=== PATIENT | female | born 1995 | race Caucasian/White ===

== ENCOUNTER 2017-05-31 15:14 | Emergency (ER) | payer OTHER | END 2017-05-31 16:58 | disposition home or self-care (01) | LOC: M ED 15:14 | DX: Z04.1 Encounter for examination and observation following transport accident (principal); S20.20XA Contusion of thorax, unspecified, initial encounter; V48.5XXA Car driver injured in noncollision transport accident in traffic accident, initial encounter; Y92.411 Interstate highway as the place of occurrence of the external cause; Y93.89 Activity, other specified; Y99.8 Other external cause status; M54.5 Low back pain; Z79.899 Other long term (current) drug therapy | CPT/HCPCS: 71111 ==

== ENCOUNTER 2017-10-02 11:05 | Emergency (ER) | payer OTHER ==
[2017-10-02] MEDS: NS 1,000 ML IV (12:00)
[2017-10-02] MEDS: ACETAMINOPHEN TAB 650MG DOSE (2X325MG) PO (12:00)
[2017-10-02 12:08] LABS: BASO # 0.1 10^3/uL (0.0-0.2); BASO % 0.7 % (0.0-1.0); EOS # 0.1 10^3/uL (0.0-0.50); EOS % 1.2 % (0.0-3.0); HEMATOCRIT 38.6 % (36.0-47.0); HEMOGLOBIN 13.2 g/dl (12.0-15.5); IMMATURE GRANULOCYTE % 0.1 % (0-3.0); LYMPH % 27.1 % (24.0-44.0); MEAN CORPUSCULAR HEMOGLOBIN 29.1 pg (27.0-33.0); MEAN CORPUSCULAR HGB CONC 34.2 g/dl (32.0-36.5); MONO # 0.7 10^3/uL (0.0-0.8); MONO % 9.3 % (0.0-5.0); NEUTROPHILS # 4.5 10^3/uL (1.8-7.7); NEUTROPHILS % 61.6 % (36.0-66.0); PLATELET COUNT, AUTOMATED 261 10^3/uL (150-450); RED BLOOD COUNT 4.54 10^6/uL (4.00-5.40); RED CELL DISTRIBUTION WIDTH 11.9 % (11.5-14.5); WHITE BLOOD COUNT 7.3 10^3/uL (4.0-10.0)
[2017-10-02 12:15] LABS: AMORPHOUS SEDIMENT RFX MODERATE (NEGATIVE); KETONE, URINE AUTO RFX NEGATIVE (NEGATIVE); LEUKOCYTE ESTERASE UR AUTO RFX NEGATIVE (NEGATIVE); MUCUS, URINE RFX SMALL (NEGATIVE); NITRITE, URINE AUTO RFX NEGATIVE (NEGATIVE); RBC, URINE AUTO RFX 0 /HPF (0-3); SPECIFIC GRAVITY UR AUTO RFX 1.015 (1.002-1.035); SQUAM EPITHELIAL CELL UR AURFX 0 /HPF (0-6); WBC, URINE AUTO RFX 0 /HPF (0-3)
[2017-10-02 12:45] LABS: HCG, SERUM QUANTITATIVE 18620 MIU/ML
== END 2017-10-02 13:38 | disposition home or self-care (01) ==
LOC: M ED 11:05
DX: O99.89 Other specified diseases and conditions complicating pregnancy, childbirth and the puerperium (principal); R10.9 Unspecified abdominal pain; O36.8390 Maternal care for abnormalities of the fetal heart rate or rhythm, unspecified trimester, not applicable or unspecified; Z3A.01 Less than 8 weeks gestation of pregnancy; Z79.899 Other long term (current) drug therapy
CPT/HCPCS: 76801

== ENCOUNTER 2018-03-15 12:08 | Emergency (ER) | payer OTHER | END 2018-03-15 12:55 | disposition home or self-care (01) | LOC: M ED 12:08 | DX: O99.89 Other specified diseases and conditions complicating pregnancy, childbirth and the puerperium (principal); L03.116 Cellulitis of left lower limb; Z3A.29 29 weeks gestation of pregnancy | CPT/HCPCS: 99282 ==

== ENCOUNTER 2018-05-31 04:53 | Inpatient (IN) | payer OTHER, SELFPAY ==
[2018-05-31] VITALS (36 sets, daily range): BP systolic 99–166; BP diastolic 53–91
[~2018-05-31] VITALS: Ht 180.3 cm; Wt 96.0 kg
[~2018-05-31 04:53] MED LIST: BENA25CA4 PO; CYCL5TAB PO; KEFL500C17 PO; NAPR250T4 PO; NORCOTAB PO; PRENTAB77 PO
[2018-05-31] MEDS ORDERED: LR 1,000 ML IV SCH (07:20)
[2018-05-31] MEDS ORDERED: LACTATED RINGER'S 1000 ML IV ONE (07:30)
[2018-05-31 07:50] LABS: HEMATOCRIT 34.3 % (36.0-47.0); HEMOGLOBIN 11.2 g/dl (12.0-15.5); MEAN CORPUSCULAR HEMOGLOBIN 27.3 pg (27.0-33.0); MEAN CORPUSCULAR HGB CONC 32.7 g/dl (32.0-36.5); MEAN CORPUSCULAR VOLUME 83.7 fl (80.0-96.0); PLATELET COUNT, AUTOMATED 226 10^3/uL (150-450)
[2018-05-31] MEDS ORDERED: FENTANYL 2MCG/ML ROPIVACAINE 0.2% IN 0.9% NACL 100ML IVBAG As Ordered ONE (08:10)
[2018-05-31 08:17] LABS: AMPHETAMINES URINE REFLEX NEGATIVE (NEGATIVE); BARBITURATES URINE REFLEX NEGATIVE (NEGATIVE); BENZODIAZEPINES URINE REFLEX NEGATIVE (NEGATIVE); CANNABINOIDS URINE REFLEX NEGATIVE (NEGATIVE); COCAINE METABOLITE URINE REFLE NEGATIVE (NEGATIVE); METHADONE URINE REFLEX NEGATIVE (NEGATIVE); OPIATES URINE REFLEX NEGATIVE (NEGATIVE); PHENCYCLIDINE URINE REFLEX NEGATIVE (NEGATIVE)
[2018-05-31] MEDS ORDERED: diphenhydrAMINE INJ 50MG/ML VIAL (J1200) IV PRN (09:15)
[2018-05-31] MEDS ORDERED: LACTATED RINGER'S 1000 ML IV PRN (09:15)
[2018-05-31] MEDS ORDERED: EPIDURAL/PCA KEYS XX PRN (09:15)
[2018-05-31] MEDS ORDERED: FENTANYL/ROPIVACAINE/NACL BAG 100 ML EPIDURAL SCH (09:15)
[2018-05-31] MEDS ORDERED: EPIDURAL COMMENT XX SCH (09:15)
[2018-05-31] MEDS ORDERED: ePHEDrine SULFATE 25 MG/5 ML(5MG/ML) SYRINGE IV PRN (09:15)
[2018-05-31] MEDS ORDERED: REFRIGERATOR IV KEYS XX PRN (09:15)
[2018-05-31] MEDS ORDERED: ONDANSETRON 4MG/2ML VIAL (J2405) IV PRN (09:15)
[2018-05-31] MEDS ORDERED: NALOXONE INJ 0.4 MG/1 ML VIAL (J2310) IV PRN (09:15)
--- NOTE | 2018-05-31 09:16 | NUR ---
0900 called re bradycardia post epidural hydrate positional change arom clear liquor scalp electrode 100 % effaced ot to op zero station now category 1 strip
[2018-05-31] MEDS ORDERED: OXYTOCIN 30 UNITS IN 0.9% NaCl 500ML IV BAG (J2590) As Ordered ONE (11:16)
--- NOTE | 2018-05-31 11:31 | NUR ---
1130 called re bradycardia positional change rotation head examination anterior lip now moderate variability baseline normal safe to proceed
--- NOTE | 2018-05-31 12:20 | NUR ---
1215 assessment small anterior lip clear liquor plan labor down reviewed vacuum and or forceps if necessary Presently adequate variability and baseline normal with good recovery
[2018-05-31 13:28] LABS: CORD GAS ABE A -3.7; CORD GAS ABE V -1.9; CORD GAS HCO3 A 25.6 MEQ/L; CORD GAS HCO3 V 25.6 MEQ/L; CORD GAS O2 SAT A 23.5 %; CORD GAS O2 SAT V 45.6 %; CORD GAS PCO2 A 65.5 mmHg; CORD GAS PCO2 V 54.5 mmHg; CORD GAS PH A 7.21 UNITS; CORD GAS PH V 7.29 UNITS; CORD GAS PO2 V 23.3 mmHg; CORD GAS SBC A 19.8 MEQ/L; CORD GAS SBC V 21.6 MEQ/L; CORD GAS TCO2 A 27.6 MEQ/L; CORD GAS TCO2 V 27.3 MEQ/L
[2018-05-31] MEDS ORDERED: OXYTOCIN DRIP 30 UNITS in APPROPRIATE DILUENT 1 EA IV SCH (14:01)
[2018-05-31] MEDS ORDERED: RHOGAM 300 MCG (1500 IU) INJ (J2790) IM SCH (14:15)
[2018-05-31] MEDS ORDERED: MOM 30ML SUSPENSION UDC PO PRN (14:15)
[2018-05-31] MEDS ORDERED: ANUSOL HC CREAM 30GM TOP PRN (14:15)
[2018-05-31] MEDS ORDERED: OXYTOCIN INJ 10 UNITS/ML VIAL (J2590) IV ONE (14:15)
[2018-05-31] MEDS ORDERED: DIBUCAINE 1% OINTMENT 30GM TOP PRN (14:15)
[2018-05-31] MEDS ORDERED: MEASLES,MUMPS,RUBELLA VACCINE INJ (MMR-II) (90707) SC SCH (14:15)
[2018-05-31] MEDS ORDERED: METHYLERGONOVINE MALEATE 0.2 MG TAB PO PRN (14:15)
[2018-05-31] MEDS ORDERED: OXYTOCIN INJ 10 UNITS/ML VIAL (J2590) As Ordered ONE (14:38)
--- NOTE | 2018-05-31 14:58 | HPE ---
DATE OF ADMISSION: 05/31/2018 HISTORY OF PRESENT ILLNESS: 23-year-old 1, para 0, last menstrual period (LMP) 08/23/2017, estimated date of confinement (EDC) 05/30/2018 at 40 and 1 weeks' of gestation in active labor, 5-6 cm dilated with bulging membranes. RISK FACTORS: She is Rh negative. LABS: O negative. HIV negative. Hep negative. RPR negative. Rubella immune. Varicella nonimmune. Urine was negative. Gonorrhea and chlamydia were negative. 1-hour glucose was 145. Her 3-hour GTT her 1 hour was 117, 2 hour 94, and 3 hour was 53. She is Group B Streptococcus (GBS) negative. Blood pressure is 116/63, respirations are 18, pulse is 91, temperature 98.8. Urine is 1.010, pH is 7 and negative. She has a category 1 strip. She is normocephalic, atraumatic. Neck full range of motions. Pupils equal and reactive to light. Distal pulses symmetric. No evidence of deep vein thrombosis (DVT), pulmonary embolism (PE) or superficial phlebitis. No wheezes or rhonchi. No CVA tenderness. Four quadrant bowel sounds are noted. Appropriate symphysis fundus height, 5-6 cm, 100% effaced, 0 station, bulging membranes. She has no rashes, lesions or pruritus. No arthralgia or myalgia. No complaint of joint pain. No complaint of cough, wheeze, shortness of breath or dyspnea on exertion. No bleeding. Neuro complete. No incontinence, urgency or frequency. No nausea, vomiting, diarrhea or constipation. She has no diabetic issues as per her 3-hour GTT. She has no gyne issues. No Pap smear. She was under 21. No STDs. Past medical-surgical history is unremarkable. Family history is noncontributory. She does not smoke, drink, abuse drugs. No domestic violence. Good support systems. We discussed the consent for vaginal delivery of her baby through the vagina with possible assistance of forceps or vacuum devices if needed for maternal or indications. Forceps and vacuum are devices that can assist with vaginal delivery when normal pushing efforts cannot achieve delivery on their own or when delivery is needed in an emergency for baby's well-being. Medications that may required to induce or augment labor in order to help achieve vaginal delivery, an episiotomy may be required to help the baby deliver vaginally, you may also require repair of lacerations or tears of the vagina or vulva caused by delivery, and in some cases emergencies can occur requiring emergency section delivery so quickly that there may not be enough time to stop and complete consent forms for section. If this occurs the provider will discuss the risks and benefits of section before proceeding with the surgery. section is a delivery through the abdomen with an incision on your abdomen, and in situations section may be safer to mom and baby than continuing labor, and is only performed when clinically indicated. The risk of vaginal delivery include are not limited to bleeding, infection, injury to the vagina, pelvic structures, injury to the baby, damage to the uterus, reaction to anesthesia, uterine rupture, risk of hysterectomy for life-threatening bleeding or . Medications used to induce or augment labor may increase risk of infection, uterine tachysystole, uterine rupture, heart rate abnormalities, need for emergency delivery, or possibly hysterectomy and hemorrhage. Additional risks for the use of forceps and vacuum include scratches, hematomas on the head, or intracranial bleed. The patient expressed understanding verbalizing this and we are going to plan on admitting her, hydrating her, getting the epidural and anticipate delivery.
[2018-05-31] MEDS: IBUPROFEN 800 MG TAB PO PRN (16:55)
[2018-05-31] MEDS: ACETAMINOPHEN 500 MG TAB PO PRN (21:53)
[2018-05-31] MEDS: DOCUSATE SODIUM 100 MG CAP PO PRN (22:56)
[2018-06-01] MEDS: IBUPROFEN 800 MG TAB PO PRN ×2 (04:26→15:54)
[2018-06-01 06:00] VITALS: BP 115/61
[2018-06-01 06:38] LABS: HEMATOCRIT 29.1 % (36.0-47.0); HEMOGLOBIN 9.6 g/dl (12.0-15.5); MEAN CORPUSCULAR HEMOGLOBIN 27.4 pg (27.0-33.0); MEAN CORPUSCULAR VOLUME 82.9 fl (80.0-96.0); PLATELET COUNT, AUTOMATED 198 10^3/uL (150-450); RED BLOOD COUNT 3.51 10^6/uL (4.00-5.40); WHITE BLOOD COUNT 13.6 10^3/uL (4.0-10.0)
--- NOTE | 2018-06-01 08:26 | DN ---
DATE: 05/31/2018 This lady is a 1, now para 1, who came in at 5-6 cm, bulging membranes, moderate contractions. She requested an epidural which was done and she progressed on her own with intermittent decelerations which reacted and responded to positional change and fluid bolus. Multiple exams showed that she was 5-6 in the occiput posterior (OP) position. Then she was 8-9 and then she had an anterior lip. We allowed her to labor down until she was fully dilated and then had her experience several episodes of pushing; however, the contractions themselves were quite spaced far apart and heart always returned to baseline and had moderate variability. We then augmented with 2 milliunits of Pitocin. The patient was a good pusher, but being exhausted and she was not pushing well. We explained to her the options of vacuum or forceps delivery. We initially because it was asynclitic off to the right and molding, we attempted to put the vacuum on and we brought the pressure up to 20 mmHg or 0.7 bars. We waited for a contraction and had her push, however, the vacuum seal was not well applied because of asynclitism and the molding that was there. Therefore we reevaluated the situation and did express to her that with moderate effort of pushing with a forceps delivery that she could sustain a vaginal delivery. Therefore the Nish-McCleans were applied in the OA position awaiting a contraction after two milliunits of Pitocin and she did one moderate push. A midline episiotomy was performed. Then we delivered a live male infant, 8 pounds 14 ounces, 4030 grams, Apgars of 8 and 9 at one and five minutes respectively. Arterial pH 7.21, base excess -3.7, venous pH 7.29, base excess -1.9. Placenta delivered spontaneously thereafter, three-vessels and the cord membranes and tissues intact. On examination, of the vagina, she had quite a bruised vagina on the right side because of asynclitism and she had a rim of cervix which was black and blue because of the persistent posterior position that did not rotate until the last several minutes prior to delivery. The left vaginal wall was intact. The bladder was intact. The sphincter and the rectum was intact. We then went ahead and over sewed the episiotomy with #2-0 Vicryl on a J339. We put in a subcuticular stitch of the same. Digitally examined the sphincter which was intact and rectal mucosa. The uterus was well contracted under Pitocin and the patient and baby were sent to recovery in good condition.
--- NOTE | 2018-06-01 08:59 | IPN ---
DATE: 06/01/2018 This lady is a 1, para 1, who had a vaginal delivery of a live male infant 8 pounds 14 ounces. She sustained a midline episiotomy which was repaired in the usual fashion. Postdelivery, her epidural took a long time to wear off. However, she was unable to void, and at 0400 hours a catheterization of the patient for 1100 mL of clear urine was done. At the present time, three hours later, she still has no urgency to void. Therefore, we are going to wait an hour, have her attempt voiding, and if not we will reinsert the Alvarez catheter, clamp and drain every 2 hourly times 24 hours. The rest of the examination is unremarkable. Her blood pressure is 115/61. Respirations 18. Pulse 90. Temperature 98.6. Her admitting hemoglobin was 11.2, hematocrit 34.3 and platelets were 226. day #1, hemoglobin 9.6, hematocrit 29.1 and platelets 198. She is presently breast-feeding and doing well. She is mobilizing well, passing gas. However her bottom is considerably swollen and she is using an ice diaper on an as needed basis. In summary, we have a term gestation who delivered a live male infant with urinary retention. Plan on discharge in 24 hours unless unable to void.
[2018-06-01] MEDS: PRENATAL VITAMINS CHEWABLE TABLET PO SCH (09:23)
[2018-06-01] MEDS: ACETAMINOPHEN 500 MG TAB PO PRN (09:25)
[2018-06-01 18:00] VITALS: BP 119/73
[2018-06-01] MEDS: DOCUSATE SODIUM 100 MG CAP PO PRN (19:53)
[2018-06-02] MEDS: IBUPROFEN 800 MG TAB PO PRN ×2 (00:15→09:50)
[2018-06-02] MEDS: ACETAMINOPHEN 500 MG TAB PO PRN (02:36)
[2018-06-02 05:59] VITALS: BP 116/64
--- NOTE | 2018-06-02 07:30 | DS.PDOC ---
Discharge Summary General Date of Admission May 31, 2018 at 07:35 Date of Discharge [id number] Discharge Summary ADMITTING DIAGNOSES: Active Labor DISCHARGE DIAGNOSES: Same, operative forceps delivery, uncomplicated HOSPITAL COURSE: Admitted and delivery uncomplicated, other than need for fo rceps assistance. Needed an episiotomy and forcpes to assist in delivery and had a small labial hematoma which did not expand . Also could not urinate therefore a mckenna was needed but overnight 7 to 8JAN was able to void spontaneously. DISCHARGE MEDICATIONS: Motrin, Lanolin, Tylenol, Colace, Dibucaine DISCHARGE INSTRUCTIONS: Nothing in the vagina for 6 weeks. F/U in OBGYN clinic in 6-8 weeks. Sessions Vital Signs/I&Os Vital Signs Date Time Temp Pulse Resp B/P (MAP) Pulse Ox O2 Delivery O2 Flow Rate FiO2 06/02/18 05:59 97.6 89 18 116/64 (81) 06/01/18 06:00 97 Room Air I&O- Last 24 Hours up to 6 AM 06/02/18 06:00 Output Total 1450 ml Balance -1450 ml Discharge Medications Scheduled Multivit/Min/Pren/Fol Ac/Iron ( Plus 27-1 mg) 1 Tab Tab, 1 TAB PO DAILY, (Reported) Allergies Coded Allergies: No Known Allergies (Unverified , 10/02/17) SESSIONS,TYRON Nieves MD Jun 02, 2018 07:30
--- NOTE | 2018-06-02 07:32 | IPNPDOC ---
Text Note Date of Service The patient was seen on 06/02/18. NOTE PPD2 States feeling well, pain controlled with prescribed meds. Baby bonding and feeding well. No heavy VB. Lochia slowing. Ambulating and voiding well. Tolerating PO without issues. Alvarez out yest afternoon and has voided several times overnight. VSSAF NAD A&O RRR CTAB LE no C/C/E Ut at U-2, firm External labia and perineum healing well. a/p: Doing well. Cont routine care. D/C today. Sessions MD GUERRERO,[place], I+O VS[place], I+O Vital Signs Date Time Temp Pulse Resp B/P (MAP) Pulse Ox O2 Delivery O2 Flow Rate FiO2 06/02/18 05:59 97.6 89 18 116/64 (81) 06/01/18 06:00 97 Room Air I&O- Last 24 Hours up to 6 AM 06/02/18 06:00 Output Total 1450 ml Balance -1450 ml SESSIONS,TYRON Nieves MD Jun 02, 2018 07:32
[2018-06-02] MEDS: PRENATAL VITAMINS CHEWABLE TABLET PO SCH (08:06)
[2018-06-02] MEDS ORDERED: MAPA500T2 PO (08:58)
[2018-06-02] MEDS ORDERED: DIBU1OIN TOP (08:58)
[2018-06-02] MEDS ORDERED: IBUP-1022 PO (08:58)
[2018-06-02] MEDS ORDERED: COLA100C5 PO (08:58)
== END 2018-06-02 12:40 | disposition home or self-care (01) | DRG 807 ==
LOC: M LDO 04:53 → M LDI 07:35 → M OBS 15:42
PROVIDERS: ADMIT Obstetrics & Gynecology; ATTEND Obstetrics & Gynecology
PROC: 10D07Z3 Extraction of Products of Conception, Low Forceps, Via Natural or Artificial Opening (ICD-10-PCS; principal; 2018-05-31)
PROC: 0W8NXZZ Division of Female Perineum, External Approach (ICD-10-PCS; 2018-05-31)
DX: O48.0 Post-term pregnancy (principal); Z37.0 Single live birth; Z3A.40 40 weeks gestation of pregnancy

== ENCOUNTER → 2019-02-16 | Outpatient (REF) | payer OTHER ==
[~2019-02-16] MED LIST changes: +COLA100C5 PO; +DIBU1OIN TOP; +HYDR-3715 PO; +IBUP-1022 PO; +MAPA500T2 PO; -NORCOTAB PO
== END ==
LOC: M SFHCLERA 14:17
PROVIDERS: ATTEND Nurse Practitioner Family
DX: J02.9 Acute pharyngitis, unspecified (principal)